=== PATIENT | male | born 1985 | race Caucasian/White ===

== ENCOUNTER 2018-11-18 12:50 | Inpatient (IN) | payer OTHER ==
--- NOTE | 2018-11-18 12:55 | PDOC ---
History of Present Illness - General Chief Complaint: Pain Stated Complaint: ABD PAIN Time Seen by Provider: 11/18/18 12:53 - History of Present Illness Initial Comments: 11/18/18 13:23 33m with no relevant pmh presenting with RLQ abdominal pain since last night. Couldn't sleep, felt bloated in the morning, took laxatives and an enema which help move his bowels but the pain and the feeling of being bloated The pain is sharp and non radiating. He went to an urgent care center this morning and was told to go to the ER to r/ o appendicitis. No previous abdominal surgery. Past History - Past Medical History Allergies/Adverse Reactions: Allergies Allergy/AdvReac Type Severity Reaction Status Date / Time No Known Allergies Allergy Verified 11/18/18 12:53 Home Medications: Ambulatory Orders Bisacodyl 5 mg PO DAILY 11/18/18 Loratadine [Claritin] 10 mg PO DAILY 11/18/18 Simethicone [Gas-X] 125 mg PO ASDIR 11/18/18 Review of Systems - Review of Systems Able to Perform ROS?: Yes Is the patient limited [place] proficient: No Constitutional: No: Symptoms Reported HEENTM: No: Symptoms Reported Respiratory: No: Symptoms reported Cardiac (ROS): No: Symptoms Reported ABD/GI: Yes: See HPI : No: Symptoms Reported Musculoskeletal: No: Symptoms Reported Integumentary: No: Symptoms Reported Neurological: No: Symptoms reported All Other Systems: Reviewed and Negative *Physical Exam - Physical Exam General Appearance: Yes: Obese HEENT: positive: EOMI, NGUYỄN, Normal ENT Inspection Respiratory/Chest: positive: Lungs Clear, Normal Breath Sounds. negative: Chest Tender, Respiratory Distress Cardiovascular: positive: Regular Rhythm, S1, S2, Tachycardia Gastrointestinal/Abdominal: positive: Tender (LRQ, suprapubic), Other (Positive psoas and obturator signs. ). negative: Hernia Male Genitalia: positive: other (positive cremasteric reflex, no evidence of torsion. ). negative: testicular mass Musculoskeletal: positive: Normal Inspection. negative: CVA Tenderness Extremity: positive: Normal Capillary Refill, Normal Inspection, Normal Range of Motion Neurologic: positive: Fully Oriented, Alert, Normal Mood/Affect, Normal Response ED Treatment Course - LABORATORY CBC & Chemistry Diagram: 11/18/18 13:15 11/18/18 13:15 Medical Decision Making - Medical Decision Making 11/18/18 14:27 33f with LRQ pain. All signs point toward appendicitis, high suspicion. Will obtain all presurgical labs and ct abdo/pelvis with contrast. Low suspicion for testicular torsion based on exam,. Will obtain lipase to r/o pancreatitis despite low suspicion. If all negative and patient is just constipated we hydrate and treat accordingly. Acute uncomplicated appendicitis seen on CT. Started patient on Metrodinazole, Cefuroxime and LR, bolus and maintenance fluids. Spoke to Dr. Driver who will operate on the patient. 11/18/18 16:00 Patient being transferred directly to PACU at [facility]. *DC/Admit/Observation/Transfer Diagnosis at time of Disposition: Acute appendicitis, uncomplicated - Discharge Dispostion Condition at time of disposition: Stable Decision to Admit order: Yes - Referrals - Patient Instructions - Post Discharge Activity
[2018-11-18 13:03] VITALS: BMI 32.1
[2018-11-18] MEDS ORDERED: ACETAMINOPHEN 1000 MG/100 ML VIAL (NON FORMULARY) IVPB ONE ×2 (13:07→21:13)
[2018-11-18] MEDS ORDERED: morphine CARPU-JECT 2 MG/1 ML DISP.SYRIN IVPUSH ONE (13:07)
[2018-11-18] MEDS ORDERED: SODIUM CHLORIDE 1,000 ML IV STA (13:07)
[2018-11-18] MEDS ORDERED: ONDANSETRON 4 MG/2 ML VIAL IVPUSH ONE (13:20)
[2018-11-18] MEDS ORDERED: ACETAMINOPHEN INJECTION 100 ML IVPB ONE (13:24)
[2018-11-18] MEDS ORDERED: ONDANSETRON 4 MG/2 ML VIAL ONE (13:24)
[2018-11-18] MEDS ORDERED: morphine SULFATE 4 MG/ML VIAL ONE (13:42)
[2018-11-18 14:07] LABS: BASO % 0.2 % (0-2.0); EOS % 1.3 % (0-4.5); HEMATOCRIT 46.1 % (35.4-49); HEMOGLOBIN 15.6 GM/dl (11.7-16.9); LYMPH % 7.5 % (8-40); MCH 30.4 pg (25.7-33.7); MCHC 33.8 g/dl (32.0-35.9); MEAN PLT VOLUME 8.5 fl (7.5-11.1); MONO % 8.8 % (3.8-10.2); NEUT % 82.2 % (42.8-82.8); PLATELET COUNT 298 K/MM3 (134-434); RBC 5.12 M/mm3 (4.00-5.60); RDW 12.4 % (11.9-15.9); WHITE BLOOD COUNT 17.4 K/mm3 (4.0-10.8)
--- NOTE | 2018-11-18 14:08 | PDOC ---
Attending Attestation - Resident Resident Name: Davon Monsivais - ED Attending Attestation I have performed the following: I have examined & evaluated the patient, The case was reviewed & discussed with the resident, I agree w/resident's findings & plan - HPI HPI: 11/18/18 14:05 Healthy 33-year-old male presents with progressive abdominal pain since last night. Began as epigastric discomfort, over the course of the night became more severe and localized to the suprapubic/right lower quadrant region. Positive anorexia, positive nausea, baseline constipation, took laxatives and had some loose nonbloody stool. No fevers or chills. No surgical history. - Physicial Exam PE: 11/18/18 14:05 Low-grade fever 100.2 here, vitals otherwise within normal limits Generally well-appearing, obese, no acute distress No jaundice or pallor, dry mucosa Heart is regular slight tachycardia, lungs are clear Abdomen is soft/nondistended. Tenderness with guarding in the right lower quadrant and right suprapubic region, positive rebound to the right lower quadrant. No CVA tenderness No hernias/LAD exam per resident and normal - Medical Decision Making 11/18/18 14:06 Healthy 33-year-old male with progressive right lower quadrant pain over the last day, low-grade fever here with peritoneal findings localizing to the right lower quadrant. Presentation could be most consistent with acute appendicitis, hemodynamically stable. Labs, urinalysis CT of the abdomen and pelvis IV fluids, pain control, nausea control, antipyretics Reassess, surgery consult 11/18/18 15:36 + acute appendicitis on CTAP without rupture, leukocytosis. iv abx, surgery consult/admission Heart Score/ECG Review #1 General ECG Interpretation: Sinus Rhythm, Normal Rate (87), Normal Intervals ( qtc 442), No acute ischemic changes
[2018-11-18 14:14] LABS: ALBUMIN 4.4 g/dl (3.4-5.0); ALK PHOS 72 U/L (45-117); ANION GAP 6 MMOL/L (8-16); BILIRUBIN,TOTAL 1.4 mg/dl (0.2-1); BLOOD UREA NITROGEN 12 mg/dl (7-18); CALCIUM 8.9 mg/dl (8.5-10); CHLORIDE 104 mmol/L (98-107); CO2 26 mmol/L (21-32); GLUCOSE,RANDOM 103 mg/dl (74-106); POTASSIUM 3.8 mmol/L (3.5-5.1); SGOT/AST 36 U/L (15-37); SGPT/ALT 86 U/L (13-61); SODIUM 136 mmol/L (136-145); TOT PROT 7.5 g/dl (6.4-8.2)
[2018-11-18 14:33] LABS: ACTIVATED PTT 30.5 SECONDS (25.2-36.5)
[2018-11-18 14:46] LABS: INR 1.14 (0.82-1.09); PROTHROMBIN TIME (PATIENT) 12.7 SEC (10.2-13.0)
[2018-11-18] MEDS ORDERED: LACTATED RINGERS SOLUTION 1,000 ML/1,000 ML INFUS.BAG IV STA (14:55)
[2018-11-18] MEDS ORDERED: CEFTRIAXONE 2,000 MG in DEXTROSE 5%-WATER - 50 ML IVPB ONE (14:56)
[2018-11-18] MEDS ORDERED: cefOXitin SODIUM 1 GM/10 ML PUSH (RESTRICTED TO ID) IVPUSH ONE (15:10)
[2018-11-18] MEDS ORDERED: LACTATED RINGERS SOLUTION 1,000 ML/1,000 ML INFUS.BAG IV SCH (15:15)
--- NOTE | 2018-11-18 19:28 | HP ---
Admitting History and Physical - Primary Care Physician PCP: none - Admission Chief Complaint: periumbilical pain migrating to RLQ, fever, nausea History of Present Illness: 33yo generally healthy M presented to ER from urgent care with RLQ pain, worsening since last night, associated with subjective fever and chills, nausea but no vomiting. He thought he was initially constipated, had maybe gas pains, when he began having periumbilical pain yesterday afternoon, but it later migrated to RLQ and got worse, despite some gas medicine and a laxative. Had normal BM earlier yesterday, and a little more last night, but the pain did not get better. He did not sleep very well at all, and when he was tender this morning, went to urgent care, where they sent him to [facility] ER. ER workup showed a temp 99.9, wbc [address] was positive for acute appendicitis. He was sent over to [facility], as [facility] does not have an OR call team and could not accommodate a case this evening. He is seen and examined in OR holding (PACU), with girlfriend present. He got Cefoxitin at [facility], and has had IV fluids. He is NPO since last night. History Source: Patient Limitations to Obtaining History: No Limitations - Past Medical History ENT: Yes: Allergic Rhinitis - Past Surgical History Past Surgical History: Yes: Tonsillectomy Additional Past Surgical History: nasal septum repair for deviation, circumcision - Smoking History Smoking history: Never smoked Have you smoked in the past 12 months: No - Alcohol/Substance Use Hx Alcohol Use: Yes (social) History of Substance Use: reports: None - Social History ADL: Independent Occupation: works at [employer] Home Medications - Allergies Allergies/Adverse Reactions: Allergies Allergy/AdvReac Type Severity Reaction Status Date / Time No Known Allergies Allergy Verified 11/18/18 12:53 - Home Medications Home Medications: Ambulatory Orders Bisacodyl 5 mg PO DAILY PRN 11/18/18 Loratadine [Claritin] 10 mg PO DAILY 11/18/18 Simethicone [Gas-X] 125 mg PO ASDIR PRN 11/18/18 Home Medications (free text): just took claritin for 2 days, just took others yesterday with hpi Family Disease History - Family Disease History Family Disease History: CA: Grandparent (GF, liver ca) Review of Systems - Review of Systems Constitutional: reports: Chills, Fever, Loss of Appetite Eyes: denies: Blurred Vision, Recent Change in Vision HENT: reports: Nasal Congestion (recent - thought allergies), Other (itchy in ears sometimes, uses q-tips, sometimes they bleed). denies: Difficult Swallowing, Throat Pain Neck: denies: Swollen Glands, Tenderness Cardiovascular: reports: Chest Pain (week or two ago at home). denies: Palpitations Respiratory: denies: Cough, SOB Gastrointestinal: reports: Abdominal Pain (with hpi), Nausea. denies: Constipation, Diarrhea, Vomiting Genitourinary: denies: Burning, Dysuria Musculoskeletal: denies: Back Pain, Joint Pain, Muscle Pain Integumentary: denies: Change in Color, Rash Neurological: denies: Dizziness, Headache Physical Examination Vital Signs: Vital Signs Temperature 98 F 11/18/18 17:00 Pulse Rate 86 11/18/18 17:00 Respiratory Rate 16 11/18/18 17:00 Blood Pressure 118/79 11/18/18 17:00 O2 Sat by Pulse Oximetry (%) 99 11/18/18 15:49 Constitutional: Yes: Well Nourished, No Distress, Calm Eyes: Yes: Conjunctiva Clear, EOM Intact HENT: Yes: Atraumatic, Normocephalic Neck: Yes: Supple, Trachea Midline Cardiovascular: Yes: Regular Rate and Rhythm, Tachycardia (slight) Respiratory: Yes: Regular, CTA Bilaterally Gastrointestinal: Yes: Normal Bowel Sounds, Soft, Tenderness (RLQ focal with local guarding only, no rebound; also referred from LLQ and RUQ). No: Distention ...Rectal Exam: Yes: Deferred Renal/: No: CVA Tenderness - Left, CVA Tenderness - Right Musculoskeletal: No: Back Pain (no direct tenderness), Joint Stiffness, Joint Swelling Extremities: No: Cool, Cyanosis Edema: No Peripheral Pulses WNL: Yes Integumentary: No: Jaundice, Rash Neurological: Yes: Alert, Oriented Psychiatric: Yes: Alert, Oriented Labs: CBC, BMP 11/18/18 13:15 11/18/18 13:15 CMP Sodium 136 mmol/L (136-145) 11/18/18 13:15 Potassium 3.8 mmol/L (3.5-5.1) 11/18/18 13:15 Chloride 104 mmol/L (98-107) 11/18/18 13:15 Carbon Dioxide 26 mmol/L (21-32) 11/18/18 13:15 Anion Gap 6 MMOL/L (8-16) L 11/18/18 13:15 BUN 12 mg/dl (7-18) 11/18/18 13:15 Creatinine 1.0 mg/dl (0.55-1.3) 11/18/18 13:15 Creat Clearance w eGFR 86.60 (>60) 11/18/18 13:15 Random Glucose 103 mg/dl (74-106) 11/18/18 13:15 Calcium 8.9 mg/dl (8.5-10) 11/18/18 13:15 Total Bilirubin 1.4 mg/dl (0.2-1) H 11/18/18 13:15 AST 36 U/L (15-37) 11/18/18 13:15 ALT 86 U/L (13-61) H 11/18/18 13:15 Alkaline Phosphatase 72 U/L (45-117) 11/18/18 13:15 Total Protein 7.5 g/dl (6.4-8.2) 11/18/18 13:15 Albumin 4.4 g/dl (3.4-5.0) 11/18/18 13:15 Lipase 116 U/L (73-393) 11/18/18 13:15 INR, PTT INR 1.14 (0.82-1.09) 11/18/18 13:15 Urine Test Results Urine Color Yellow 11/18/18 17:30 Urine Appearance Clear 11/18/18 17:30 Urine pH 7.0 (4.5-8) 11/18/18 17:30 Urine Protein Negative (NEGATIVE) 11/18/18 17:30 Urine Glucose (UA) Negative (NEGATIVE) 11/18/18 17:30 Urine Ketones Negative (NEGATIVE) 11/18/18 17:30 Urine Blood Negative (NEGATIVE) 11/18/18 17:30 Urine Nitrite Negative (NEGATIVE) 11/18/18 17:30 Urine Bilirubin Negative (NEGATIVE) 11/18/18 17:30 Ur Leukocyte Esterase Negative (NEGATIVE) 11/18/18 17:30 Imaging - Results Cat Scan: Report Reviewed, Image Reviewed (images reviewed - enlarged inflamed appendix with surrounding inflammatory changes) Problem List - Problems (1) Acute appendicitis with localized peritonitis, without perforation or abscess Assessment/Plan: admit 23H/satellite to surgery NPO/IVF until postop DVT prophylaxis perioperative antibiotics Discussed with patient risks, benefits and alternatives of laparoscopic possible open appendectomy, including but not limited to bleeding, infection, injury to adjacent structures, intestinal leak or injury, intraabdominal abscess , incisional hernia, need for further procedures, ; alternatives include antibiotics, delayed or no surgery - risks of this include failure of nonoperative therapy, perforation, sepsis, recurrence, . Patient desires to proceed with operation - will take to OR for above. Informed consent signed for same. Code(s): K35.30 - ACUTE APPENDICITIS WITH LOC PERITONITIS, W/O PERF OR GANGR Qualifiers: Appendicitis gangrene presence: without gangrene Qualified Code(s): K35.30 - Acute appendicitis with localized peritonitis, without perforation or gangrene (2) RLQ abdominal pain Code(s): R10.31 - RIGHT LOWER QUADRANT PAIN (3) Nausea alone Code(s): R11.0 - NAUSEA (4) Anorexia Code(s): R63.0 - ANOREXIA
[2018-11-18] MEDS ORDERED: cefOXitin SODIUM 1 GM VIAL (RESTRICTED TO ID) IVPB ONE (20:15)
[2018-11-18] MEDS ORDERED: BUPIVACAINE HCL/PF (5 MG/ML) 30 ML VIAL IJ ONE (20:45)
[2018-11-18] MEDS ORDERED: ONDANSETRON 4 MG/2 ML VIAL IVPUSH PRN ×2 (21:09→22:06)
[2018-11-18] MEDS ORDERED: LACTATED RINGERS SOLUTION 1,000 ML IV SCH ×3 (21:15→22:06)
--- NOTE | 2018-11-18 21:54 | OP ---
Operative Note - Note: Operative Date: 11/18/18 Pre-Operative Diagnosis: acute appendicitis w/localized peritonitis Operation: laparoscopic appendectomy Findings: inflamed, very enlarged/bulbous appendix (mostly distal 2/3), with normal base, tip stuck to RLQ anterior abdominal wall; pus in pelvis - suctioned, not irrigated Post-Operative Diagnosis: Same as Pre-op Surgeon: Pasquale Driver Anesthesiologist/DIELECTRIC TESTING MACHINE OPERATOR: Lalitha Constantino Anesthesia: General, Local (20ml 0.5% marcaine) Specimens Removed: appendix to pathology Estimated Blood Loss (mls): 5 Drains & Tubes with Location: Back out at case end Drains, Volume Out (mls): 400 (UOP) Fluid Volume Replaced (mls): 1,500 (crystalloid) Operative Report Dictated: Yes
[2018-11-19] MEDS ORDERED: IBUPROFEN 600 MG TABLET (FP) PO SCH
[2018-11-19] MEDS: IBUPROFEN 600 MG TABLET (FP) PO SCH ×3 (00:36→13:11)
[2018-11-19] MEDS: CEFOXITIN SODIUM/DEXTROSE,ISO 2 GM/50 ML BAG IVPB SCH ×2 (02:56→08:51)
[2018-11-19] MEDS ORDERED: CEFOXITIN SODIUM 2 GM in DEXTROSE 5%-WATER - 100 ML IVPB SCH (03:00)
[2018-11-19] MEDS ORDERED: ACETAMINOPHEN 325 MG TABLET (FP) PO SCH (03:00)
[2018-11-19] MEDS: ACETAMINOPHEN 325 MG TABLET (FP) PO SCH ×2 (03:54→08:51)
[2018-11-19 06:20] VITALS: BP 100/60; PULSE 84; TEMP 97.7
--- NOTE | 2018-11-19 13:14 | DS ---
Physical Examination Vital Signs: Vital Signs Temperature 97.7 F 11/19/18 06:19 Pulse Rate 84 11/19/18 06:19 Respiratory Rate 20 11/19/18 06:19 Blood Pressure 100/60 11/19/18 06:19 O2 Sat by Pulse Oximetry (%) 96 11/19/18 05:25 Findings/Remarks: Seen and examined in bed with girlfriend present. 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 Tolerating diet. Constitutional: Yes: Well Nourished, No Distress, Calm Eyes: Yes: Conjunctiva Clear, EOM Intact HENT: Yes: Atraumatic, Normocephalic Neck: Yes: Supple, Trachea Midline Cardiovascular: Yes: Tachycardia. No: Pulse Irregular (mild) Respiratory: Yes: Regular, CTA Bilaterally Gastrointestinal: Yes: Normal Bowel Sounds, Soft, Distention (mild), Tenderness (minimal RLQ, + incisional, appropriate postop) ...Rectal Exam: Yes: Deferred Extremities: No: Cool, Cyanosis Integumentary: Yes: Incision (x3 dressed). No: Jaundice, Rash Wound/Incision: Yes: Steri Strips (under dressings), Dressing Dry and Intact (x3 ). No: Dressing Removed Neurological: Yes: Alert, Oriented Labs: no new labs Discharge Summary Reason For Visit: ACUTE APPENDICITIS Current Active Problems Acute appendicitis with localized peritonitis, without perforation or abscess ( Acute) RLQ abdominal pain (Acute) Nausea alone (Acute) Anorexia (Acute) Procedures: Principal: laparoscopic appendectomy Hospital Course: 33yo generally healthy M presented to ER with periumbilical pain migrating to RLQ, associated with subjective fever/chills and nausea, and was found to have wbc [address] showed acute appendicitis. He was taken for laparoscopic appendectomy and given perioperative antibiotics. Postop, he has tolerated diet , is ambulating and voiding, no gas or BM yet, and tolerating diet. Pain is manageable with alternating tylenol and ibuprofen. He is discharged home with lifting restrictions to f/u in 2 wks. Referred to possible PMDs for medical followup. Time spent on discharge: 35 minutes Condition: Good - Instructions Diet, Activity, Other Instructions: Postoperative instructions: You had a laparoscopic appendectomy on 11/18/[address] Pasquale Driver of [facility]. Activity: Resume your usual activities gradually, but no heavy exertion or lifting more than 10-15 pounds for 1 month. Remove dressings 48 hours after surgery; sticky tapes underneath will fall off by themselves. You may shower daily starting then, just pat the incision areas dry. No bath or swimming until skin incisions have healed. Eat lightly at first, but advance to your usual diet as tolerated. Pain: For pain, you may use and alternate Tylenol (acetaminophen) 1-2 pills and/ or ibuprofen 200 mg (1-3 pills) every 6 hours each as needed; this means that you can take one OR the other at 3-hour intervals. If you are prescribed a Tylenol/narcotic combination for severe pain, use it instead of plain Tylenol as needed and switch back when your pain starts decreasing. Do not take more than 4000mg of acetaminophen in a day. Take medications as prescribed or indicated on the labeling. Follow-up: Call Dr. Driver's office at [phone] to make your postop appointment (Saturday in approximately 2 weeks after surgery). Clinic is held in the Diagnostic Center on the first floor of [facility]. Call the office if you have: * increasing pain not responsive to pain medication * fever of 101F or higher * vomiting * unusual or increasing bleeding or drainage from wounds * increasing redness or swelling at wound sites * inability to urinate Also, see your primary medical doctor or call for an appointment with a physician you have been referred to within 1-2 weeks. Referrals: Nelson Jones MD [Staff Physician] - Bakari Rodriguez MD [Staff Physician] - Disposition: HOME - Home Medications Comprehensive Discharge Medication List: Ambulatory Orders Loratadine [Claritin] 10 mg PO DAILY 11/18/18 Acetaminophen [Tylenol .Regular Strength -] 650 mg PO Q6H tablet 11/19/18 Ibuprofen [Motrin -] 600 mg PO Q6H tablet 11/19/18
--- NOTE | 2018-11-20 18:07 | PATH ---
Surgical Pathology Report Patient Name: CHAS FALCON [facility]. Rec. #: [id number] /Age/Gender: 1985 (Age: 33) / M Account: [id number] Location: [address] [place] [address] Taken: 11/18/2018 Received: 11/19/2018 Reported: 11/20/2018 Physicians: Pasquale Driver M.D. Specimen(s) Received APPENDIX Clinical History Acute appendicitis with localized peritonitis Final Diagnosis APPENDIX, LAPAROSCOPIC APPENDECTOMY: ACUTE APPENDICITIS AND PERIAPPENDICITIS. Electronically Signed Viky Parkinson M.D. Gross Description Received in formalin, labeled "appendix," is a 7 cm. in length vermiform appendix with a stapled margin of resection and moderate attached fat. The serosa is fields-mckoy with attached exudate. Sectioning reveals a focally dilated lumen containing red blood. The wall of the appendix averages 0.2 cm. in thickness. Neon Sign Worker sections are submitted in 2 cassettes. /11/19/2018 saudi/11/19/2018
== END 2018-11-19 13:26 | disposition home or self-care (01) | DRG 343 ==
LOC: FER 12:50 → JSAMEDAYSX 19:20 → J6S 23:13
PROVIDERS: ADMIT Surgery; ATTEND Surgery
PROC: 0DTJ4ZZ Resection of Appendix, Percutaneous Endoscopic Approach (ICD-10-PCS; principal; 2018-11-18 19:00)
DX: K35.30 Acute appendicitis with localized peritonitis, without perforation or gangrene (principal); R11.0 Nausea; R63.0 Anorexia; R10.31 Right lower quadrant pain
CPT/HCPCS: 36415; 74177-TC; 80053; 81003; 83690; 85025; 85610; 85730; 86850; 86900; 86901; 87086; 88304-TC; 94760; 99285-25; J0131; J7030